=== PATIENT | female | born 1975 | race Caucasian/White ===

== ENCOUNTER → 2017-08-03 | Day surgery (SDC) | payer OTHER ==
--- NOTE | 2017-08-02 13:46 | Pre Op History & Physical ---
CHIEF COMPLAINT: Right thyroid nodule. This 41-year-old female was noted to have a lesion in the right thyroid. The patient denies any dysphagia, odynophagia, or shortness of breath. The patient has no hoarseness. She has had no radiation to the head and neck area. There is no family history of thyroid problem. Ultrasound of the thyroid showed the patient has an enlarged right lobe of the thyroid with a 1.8 x 1.7 cm nodule in the inferior pole and a small cyst on the right pole. A subcentimeter nodule was noted in the left thyroid superiorly. The patient declined needle aspiration. SYSTEM REVIEW: No recent cardiovascular, respiratory or GI problems. PAST MEDICAL HISTORY: The patient has no significant medical problem. PAST SURGICAL HISTORY: She has had tonsillectomy. ALLERGIES: SHE HAS NO KNOWN ALLERGIES TO MEDICATION. MEDICATIONS: She is on Wellbutrin. SOCIAL HISTORY: She smokes about a pack per day and is a nondrinker. FAMILY HISTORY: Noncontributory. PHYSICAL EXAMINATION VITAL SIGNS: Within normal limits. HEENT: Ear exam showed normal tympanic membranes bilaterally. Nasal exam showed hypertrophy of the inferior turbinates. Oropharynx and oral cavity showed no tonsils. Flexible laryngoscopy exam showed the patient has mobile vocal folds bilaterally with no lesion in the hypopharynx. NECK: Right thyroid fullness. CHEST: Exam showed good air entry bilaterally. CARDIOVASCULAR: S1 and S2. No murmur noted. Ms. Sanchez has a right thyroid nodule. Suggested treatment is right thyroidectomy, possible total thyroidectomy, possible needle aspiration of the left thyroid nodule and other necessary procedures. Complications of the procedure include, but are not limited to: Bleeding, infection, hypothyroidism, hyperthyroidism, hypocalcemia, voice change, recurrent laryngeal nerve injury, trouble swallowing, wound breakdown, perforation of the esophagus, pneumomediastinum, mediastinitis, persistence or recurrence of the problem. The alternative would be continued observation, needle aspiration of the nodules and thyroid suppression therapy. The patient has elected to undergo the surgical procedure. Job#: [id number] cc:MARK AGUILERA MD
[~2017-08-03] MED LIST: ACETAMINOPHEN 1000 MG/100 ML IV ONE; DEXAMETHASONE SOD PHOS INJ 4 MG/ML VIAL ONE; FENTANYL CITRATE/PF 100MCG/2 ML INJ ONE; GLYCOPYRROLATE INJ 1MG/ 5 ML SYR ONE; LIDOCAINE 1% W/EPINEPHRINE 20 ML VIAL ONE; LIDOCAINE HCL 2% LOCAL INJ 5 ML SDV VIAL INJ ONE; MIDAZOLAM HCL 2 MG/2 ML VIAL ONE; MORPHINE SULFATE 2 MG/ML SYR ONE; NEOSTIGMINE 5 MG/5ML SYR ONE; ONDANSETRON HCL INJ 2 MG/ML VIAL ONE; PROPOFOL IV EMULSION 10 MG/ML 20 ML VIAL ONE; ROCURONIUM BROMIDE 10 MG/ML 5ML VIAL ONE; SEVOFLURANE INHAL SOLN 250 ML PEN BTL ONE
--- OUTSIDE RECORDS SUMMARY | 2017-08-03 10:34 | XMS REPORT | Clinical Summary ---
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 Role Phone Holly Gracia MD PCP Allergies Not on File Current Medications Not on file Active Problems Not on file Encounters Date Type Specialty Care Team Description 05/25/2017 [facility] Radiology Jeane Gracia MD Encounter 05/25/2017 [facility] Radiology Jeane Gracia MD Encounter 05/25/2017 Ancillary Radiology Jeane Gracia MD Orders 05/14/2017 [facility] Radiology Jeane Gracia MD Screening breast Encounter examination 05/10/2017 [facility] Radiology [place] Miller MD Cough Encounter 05/10/2017 [facility] Jeane Gracia MD Screening breast Orders examination (Primary Dx) 05/10/2017 Ancillary Radiology [place] Miller MD Cough Orders after 08/02/2016 Social History Tobacco Use Types Packs/Day Years Used Date Never Assessed Sex Assigned at Date Recorded Not on file Last Filed Vital Signs Not on file Plan of Treatment Health Maintenance Due Date Last Done Comments PAP SMEAR 07/31/1995 INFLUENZA VACCINE 12/01/2016 Results * Mammo Breast Screen Tomosynthesis Bilateral (05/14/2017 1:48 PM) Specimen Performing Laboratory [facility] [address] [place] [address] Addenda Addendum by Yina Garcia MD on 05/25/2017 1:06 PM ADDENDUM #1 EXAM: COMPARISON ADDENDUM REPORT 05/25/2017 1:05 PM COMPARISON: 08/08/2007, approximately 10 years ago from [facility] [place] in [place], [place]. FINDINGS - The breasts are heterogeneously dense ( category C) which may obscure small masses. The asymmetry noted in the right central slightly outer breast shows no significant interval change since prior mammograms. There has been no significant interval change since prior mammograms. IMPRESSION - NO MAMMOGRAPHIC EVIDENCE OF MALIGNANCY. ASSESSMENT: BI-RADS Category 2 - Benign RECOMMENDATION: Routine screening mammogram Bilateral in 1 Year [id number] Dictated by: Yina Garcia MD Narrative PROCEDURE: MAMMO BREAST SCREEN TOMOSYNTHESIS BILATERAL Computer-assisted detection was utilized inthe interpretation of this exam. COMPARISON: None available at this time from [facility] TECHNIQUE: Bilateral digital screening mammogram was performed and interpreted using computer-assisted detection. HISTORY: Asymptomatic routine screening. Family History: No known family history. FINDINGS: BreastComposition: The breasts are heterogeneously dense which may obscure small masses (category C). Right breast: There is asymmetry in the right central slightly outer breast seen on cc view. Comparison with prior mammograms is recommended. Left Breast: No suspicious mass , architectural distortion or suspicious microcalcifications are present. IMPRESSION: Asymmetry in the right central breast on CC view.. Comparison with prior mammograms is recommended. BI-RADS CATEGORY 0: Incomplete -Needs Additional Imaging Evaluationand/ or Comparison with Prior Studies. RECOMMENDATIONS: Comparison with prior mammograms is recommended. These will be requested at this time. NOTE: This facility is a designated [facility] ( [facility]) , meeting standards of accreditation in all modalities of breast imaging. This facility is accredited by [employer] for Mammography. A negative x-ray report should not delay biopsy if a dominant or clinically suspicious mass is present. Not all cancers are identified by x-ray. [id number] * XR Chest 2 Vw (05/10/2017 10:00 AM) Specimen Performing Laboratory [facility] [address] [place] [address] Narrative EXAMINATION: XR CHEST 2 VW INDICATION: R05 Cough COMPARISON: None IMPRESSION: Discoid atelectasis or linear scarring in the right lower lobe. No focal infiltrate, effusion, or pneumothorax. Heart size is within normal limits. [facility]-[id number] Procedure Note Interface, Radiology Results Incoming - 05/10/2017 10:22 AM LOCAL FLATBED DRIVER EXAMINATION: XR CHEST 2 VW INDICATION: R05 Cough COMPARISON: None IMPRESSION: Discoid atelectasis or linear scarring in the right lower lobe. No focal infiltrate, effusion, or pneumothorax. Heart size is within normal limits. [facility]-[id number] after 08/02/2016 Insurance Payer Benefit Subscriber ID Type Phone Address Plan / Group [facility] xxxxxxxxx HMO/PPO THCARE CHOICE/CHO ICE + [place] [address]
--- NOTE | 2017-08-03 14:37 | Operative Report ---
DATE OF PROCEDURE: August 03, 2017 PREOPERATIVE DIAGNOSES 1. Right thyroid nodules. 2. Small nodule on the left side. POSTOPERATIVE DIAGNOSES 1. Right thyroid nodules. 2. Small nodule on the left side. OPERATIVE PROCEDURE: Right thyroidectomy with appropriate closure with FNA of the left superior thyroid nodule. PLATE GRINDER: Isabel Carlos. ANESTHESIA: Anesthesiology group. INDICATIONS: This 42-year-old female was noted to have a lesion in the right thyroid. The nodule was 1.6 x 1.5 cm on the right side in the inferior pole with a large right thyroid nodule with a smaller nodule was also noted on the left the superior pole of the thyroid, which is subcentral. The patient has no radiation to the head or neck area. She denies any dysphagia, odynophagia or shortness of breath. The patient denies any hoarseness. The patient declined needle aspiration. It was decided that a right thyroidectomy with possible total thyroidectomy and FNA of the left thyroid nodule and other necessary procedures would be beneficial for her. Patient was taken to the operating room and put under general anesthesia and endotracheally intubated. The neck was marked out about 2 fingerbreadths from the sternal notch. Size of the incision was about 3 cm. Area was injected with 1% Xylocaine with 1:100,000 epinephrine for hemostasis. The area was prepped and draped in a sterile fashion. Dissection was carried down to the subplatysmal plane. The superior and inferior flap was elevated. The strap muscle was identified and this was not disturbed. The superior pole of the thyroid on the right side was freed from the surrounding soft tissue. This was done using the harmonic scalpel. The superior parathyroid gland was identified. The thyroid gland was rotated medially and inferiorly. The thyroid gland was delivered. The thyroid isthmus was dissected using the Bovie. Any bleeding area was controlled using the Bovie. The inferior pole of the thyroid was dissected from the surrounding soft tissue. Thyroid gland was rotated medially. The thyroid gland was dissected from Lambert's ligament and delivered. The recurrent laryngeal nerve was identified and not disturbed. The thyroid gland was sent for frozen section. Frozen section returned as no obvious malignancy. Closure of the area was undertaken. Before the closure was undertaken, using a 21-gauge needle the left thyroid was examined. The superior pole nodule was identified. FNA was done and sent for cytology. The tracheoesophageal groove was irrigated with copious amount of normal saline. Any bleeding area was controlled using a bipolar cautery. The area was re-examined again using sterile water. No bleeding area was noted. The strap muscle was advanced in the midline and closed on itself with 1 mattress suture of 3-0 Vicryl suture. The platysmal flap that was elevated was advanced in the midline and closed on itself using 3-0 Vicryl suture in the interrupted fashion. No Ran drain was used. The skin incision was closed using 4-0 Prolene suture in an interrupted fashion. A pressure dressing was applied. The patient tolerated the above procedure well with estimated blood loss about 5 mL. She was given 20 mg of Decadron intraoperatively. Patient was able to be transferred to the recovery room in stable condition. Job#: [id number] RI cc: MARK AGUILERA MD
== END | disposition home or self-care (01) ==
LOC: OR 10:27 → EDBD 13:00
PROVIDERS: ATTEND Otolaryngology Otolaryngology/Facial Plastic Surgery
DX: E04.1 Nontoxic single thyroid nodule (principal); J40 Bronchitis, not specified as acute or chronic; F17.210 Nicotine dependence, cigarettes, uncomplicated
CPT/HCPCS: 10021; 60220; 81025; 88173; 88307; 88333; 93005; J1100; J2001; J2250; J2270; J2405; 88305